=== PATIENT | male | born 1990 | race African-American/Black ===

== ENCOUNTER 2017-11-02 20:10 | Emergency (ER) | payer BC, MEDICAID ==
[~2017-11-02] VITALS: Ht 182.9 cm; Wt 120.0 kg
[2017-11-02 20:50] VITALS: BP 139/82
== END 2017-11-02 20:51 | disposition home or self-care (01) ==
LOC: ER 20:39
DX: R55 Syncope and collapse (principal)
CPT/HCPCS: 99283